=== PATIENT | male | born 1985 | race Caucasian/White ===

== ENCOUNTER 2018-02-11 22:38 | Emergency (ER) | payer BC ==
[2018-02-11] MEDS: LORAZEPAM 2 MG INJ IM (23:00)
== END 2018-02-12 07:42 | disposition home or self-care (01) ==
LOC: E/R 02-12 07:42
DX: F41.9 Anxiety disorder, unspecified (principal); R40.2362 Coma scale, best motor response, obeys commands, at arrival to emergency department; R40.2142 Coma scale, eyes open, spontaneous, at arrival to emergency department; R40.2252 Coma scale, best verbal response, oriented, at arrival to emergency department; R00.2 Palpitations
CPT/HCPCS: 93005; 96372; 99284-25

== ENCOUNTER 2018-09-06 01:35 | Emergency (ER) | payer OTHER, BC ==
[2018-09-06] MEDS: DIPHTH/TET/ACEL PERTUSS (ADULT) 0.5 ML VIAL IM* (04:38)
== END 2018-09-06 04:59 | disposition home or self-care (01) ==
LOC: FTE 01:35
DX: S50.351A Superficial foreign body of right elbow, initial encounter (principal); F17.210 Nicotine dependence, cigarettes, uncomplicated; F11.10 Opioid abuse, uncomplicated; M79.9 Soft tissue disorder, unspecified; X58.XXXA Exposure to other specified factors, initial encounter; Y92.9 Unspecified place or not applicable; Z23 Encounter for immunization
CPT/HCPCS: 73070; 73090-RT; 90471; 90715; 93971; 99284-25